=== PATIENT | female | born 1985 | race Caucasian/White ===

== ENCOUNTER 2017-02-13 02:28 | Inpatient (IN) | payer OTHER ==
[2017-02-13] MEDS ORDERED: Nalbuphine 20 mg/ml Inj (1 ml) IVP PRN (02:59)
[2017-02-13] MEDS: Lactated Ringer's 1,000 ML IV SCH ×2 (04:00→05:21)
[2017-02-13 04:05] LABS: BASO % 0.3 % (0.0-2.0); EOS # 0.1 K/uL (0.0-0.7); LYMPH # 1.8 K/uL (1.0-4.3); LYMPH % 15.4 % (20.0-40.0); MEAN CELL VOLUME 85.6 fl (81.0-99.0); MEAN CORPUSCULAR HEMOGLOBIN 28.6 pg (27.0-31.0); MEAN CORPUSCULAR HGB CONC 33.4 g/dL (33.0-37.0); MEAN PLATELET VOLUME 9.2 fl (7.2-11.7); MONO # 1.1 K/uL (0.0-0.8); MONO % 8.8 % (0.0-10.0); NEUT # 8.9 K/uL (1.8-7.0); NEUT % 74.5 % (50.0-75.0); NRBC % 0.1 % (0.0-0.0); RBC 4.2 Mil/uL (3.80-5.20); RED CELL DISTRIBUTION WIDTH 14.2 % (11.5-14.5); WHITE BLOOD COUNT 11.9 K/uL (4.8-10.8)
[2017-02-13] MEDS ORDERED: Fentanyl/Bupivacaine HCl 250 ML EPI ONE (06:33)
[2017-02-13] MEDS ORDERED: Oxytocin 30 units/LR 500ML 30 U/500 ML BAG IV ONE (07:36)
[2017-02-13] MEDS ORDERED: Lactated Ringer's 1,000 ML IV SCH (07:45)
--- NOTE | 2017-02-13 07:48 | OBADHP ---
Datetime: 02/13/2017 05:38 Admit Comment, IP Provider: Patient reports leaking since 1:30, no vaginal bleeding, +FM, contractio n pain. Patient reports no antepartum issues, no medical problems, no surgeries. VE=/0, grossly ruptured [id number] mod nadiya, +accels, no decels TOCO=ctxning q 5 mins A/P 1. Patient SROM and 2cm, grossly ruptured. Admit patient to labor and delivery 2. CBC, type and scren, lactated ringers 3. Epidural for pain 4. CEFM and TOCO, re-evaluate as needed Pelvic Type - PN: Adequate Extremities - PN: Normal Abdomen - PN: Normal Back - PN: Normal Breast - PN: Normal Lungs - PN: Normal Heart - PN: Normal Thyroid - PN: Normal Neurologic - PN: Normal HEENT - PN: Normal General - PN: Normal FHR - Baseline A Provider: 150 Membranes, Provider: Ruptured Contraction Comments Provider: q 5 mins Vital Signs Provider: Reviewed; Within Normal Limits IP Chief Complaint: Uterine contractions; Suspected ruptured membranes NICHD Variability Prov Fetus A: Moderate 6-25bpm NICHD Accel Fetus A IP Provider: [id number] Dilatation, Provider: 2 Effacement, Provider: 90 Station, Provider: 0 Genitourinary Exam: Normal DTRs - PN: Normal EGA AdmitDate IP: 38.5 IP Adm Impression: Term, intrauterine IP Admit Plan: Admit to unit
[2017-02-13] MEDS ORDERED: Lidocaine 2% Inj (20ml) ONE (09:32)
--- NOTE | 2017-02-13 10:06 | OBPN ---
Datetime: 02/13/2017 10:03 IP Progress Impression: Normal progression of labor IP Procedures: Sterile Vag Exam IP Progress Plan: Continue present management Contraction Comments Provider: q2min FHR - Baseline A Provider: 140s-150s IP Progress Note Comment: Patient fully dilated. Continue present management. Anticipate normal spon taneous vaginal delivery. Both maternal well-being and well-being reassuring at this time. Vital Signs Provider: Reviewed; Within Normal Limits NICHD Variability Prov Fetus A: Moderate 6-25bpm Dilatation, Provider: 10 Effacement, Provider: 100 Station, Provider: 1 Datetime: 02/13/2017 05:38 Membranes, Provider: Ruptured NICHD Accel Fetus A IP Provider: [id number]
[2017-02-13 12:29] VITALS: BMI 30.4
[2017-02-13 12:32] VITALS: BP 106/70; PULSE 79; RESP 17; TEMP 98.7; O2SAT 100
[2017-02-13] MEDS ORDERED: Oxycodone/Acetaminophen 5/325 mg Tab PO PRN ×2 (13:19→19:40)
[2017-02-13] MEDS ORDERED: Oxytocin 30 units/LR 500ML 30 U/500 ML BAG IV SCH (13:25)
[2017-02-13] MEDS ORDERED: Prenatal Multivit/Folic Acid/Iron Tab PO SCH ×2 (14:15→19:40)
[2017-02-14 08:22] LABS: HEMOGLOBIN 10.1 g/dL (12.0-16.0); MEAN CELL VOLUME 85.9 fl (81.0-99.0); MEAN CORPUSCULAR HEMOGLOBIN 28.8 pg (27.0-31.0); MEAN CORPUSCULAR HGB CONC 33.6 g/dL (33.0-37.0); RBC 3.5 Mil/uL (3.80-5.20); RED CELL DISTRIBUTION WIDTH 14.7 % (11.5-14.5); WHITE BLOOD COUNT 15.5 K/uL (4.8-10.8)
--- NOTE | 2017-02-14 08:58 | OBDS ---
DELIVERY PERSONNEL Delivery Doctor: Tom Mayers MD Payer Specialist: Miriam Astudillo RN Anesthesiologist: Cassius Heredia MD General Intern: Thompson HEREDIA MD MATERNAL INFORMATION Delivery Anesthesia: Local; Epidural Medications in Delivery: pitocin Estimated Blood Loss (ml): 400 Placenta Cultured: No Maternal Complications: None Provider Comments: Normal spontaneous vaginal delivery. Patient delivered viable female with Apgars of 9 and 9 at one and 5 minutes respectively. I nfant delivered via JANAY position. Placenta delivered spontaneously. Lacerations repaired, as above. U terus firm and appropriately hemostatic following delivery. Patient tolerated delivery and repair wel l. No complications. Estimated blood loss 300 mL LABOR SUMMARY EDC: 02/22/2017 00:00 No. Babies in Womb: 1 Attempted: No Labor Anesthesia: Epidural LABOR INFORMATION Onset of Labor: 02/13/2017 01:30 Complete Dilatation: 02/13/2017 10:00 Cervical Ripening Agents: Cytotec @ (Annotations: 50 mcg pt tolerated PO med well ) Other Ripening Agents: cytotec x1 50 mg Oxytocin: Augmentation Group B Beta Strep: Negative MEMBRANES Membranes Rupture Method: Spontaneous Rupture of Membranes: 02/13/2017 01:30 Length of Rupture (hrs): 11.38 Amniotic Fluid Color: Clear Amniotic Fluid Amount: Moderate Amniotic Fluid Odor: Normal STAGES OF LABOR Stage 1 hrs: 8 Stage 1 min: 30 Stage 2 hrs: 2 Stage 2 min: 53 Stage 3 hrs: 0 Stage 3 min: 2 Total Time in Labor hrs: 11 Total Time in Labor min: 25 VAGINAL DELIVERY Episiotomy: None Laceration Extension: Second Degree Laceration Type: Perineal; Sulcus Laceration Repair: Yes Laceration Repair Note: Second-degree midline perineal laceration, left lateral sulcal laceration. Areas infiltrated with 1% lidocaine. Both lacerations repaired with 2. 0 Rapide suture without com plication. Patient tolerated repair well. Initial Vag Sponge Count: 35 Final Vag Sponge Count: 35 Initial Vag Sharps Count: 4 Final Vag Sharps Count: 4 Sponge Count Correct: Yes Sharps Count Correct: Yes Count Comment: all count correct BABY A INFORMATION Delivery Date/Time: 02/13/2017 12:53 Method of Delivery: Vaginal Born in Route : Yes : N/A Forceps: N/A Vacuum Extraction: N/A Shoulder Dystocia : No SHOULDER DYSTOCIA BABY A Delivery Date/Time: 02/13/2017 12:53 PRESENTATION/POSITION BABY A Presentation: Cephalic Cephalic Presentation: Vertex Vertex Position: Left Occipital Anterior Breech Presentation: N/A PLACENTA INFORMATION BABY A Placenta Delivery Time : 02/13/2017 12:55 Placenta Method of Delivery: Spontaneous Placenta Status: Delivered SCORES BABY A Heart Rate 1 min: >100 bpm Resp Effort 1 min: Good Cry Reflex Irritability 1 min: Cough or Sneeze or Pulls Away Muscle Tone 1 min: Active Motion Color 1 min: Body [place], Extremities Blue SCORE 1 MIN: 9 Heart Rate 5 min: >100 bpm Resp Effort 5 min: Good Cry Reflex Irritability 5 min: Cough or Sneeze or Pulls Away Muscle Tone 5 min: Active Motion Color 5 min: Body [place], Extremities Blue Resuscitation Effort 5 min: Tactile Stimulation SCORE 5 MIN: 9 Heart Rate 10 min: >100 bpm Resp Effort 10 min: Good Cry Reflex Irritability 10 min: Cough or Sneeze or Pulls Away Muscle Tone 10 min: Active Motion Color 10 min: Completely [place] SCORE 10 MIN: 10 INFANT INFORMATION BABY A Gestational Age at Delivery: 38.5 Gestational Status: Term Outcome : Liveborn Condition : Stable Sex: Female IDENTIFICATION/MEDS BABY A ID Band Number: [id number] ID Band Location: Right Leg; Left Leg WEIGHT/LENGTH BABY A Infant Birthweight (gms): 2790 Weight (lb): 6 Weight (oz): 2 Infant Length Inches: 19.00 Infant Length cms: 48.3 CORD INFORMATION BABY A No. Cord Vessels: 3 Nuchal Cord : N/A Infant Cord pH Baby Arterial: NO Cord pH Baby Venous: NO Cord Blood Taken: Yes Banking/Donate Info: NO Infant Suction: Mouth; Nose ASSESSMENT BABY A Complications: None Physical Findings at Delivery: Within Normal Limits Respirations: Appears Normal [place] Man/ALS Called : No Care By: miriam astudillo rn,maria elena carrillo rn , sisi acosta Transferred To: Remains with Mother
--- NOTE | 2017-02-14 10:55 | OBPPN ---
Datetime: 02/14/2017 10:53 PP Pain Prov: Within normal limits PP Nausea Prov: Denies PP Flatus Prov: Yes PP Breasts Prov: Normal PP Heart Prov: Normal PP Lungs Prov: Normal PP Abdomen/Uterus Prov: Normal PP Lochia Prov: Normal PP Vulva/Perineum Prov: Normal PP CVA Tenderness Prov: Normal PP Extremities Prov: Normal PP Comments Phys Exam Prov: Fundus under umbilicus PP Impression Prov: Normal progression PP Plan Prov: Continue present management PP Progress Note Prov: Patient denies CP, no SOB, no n/V, tolerating PO diet, ambulating/voiding wel l, mild lochia, abdominal pain tolerable with meds A/P PPD #1 1. continue current orders 2. Reg diet 3. Encourage ambulation and IP PP Procedures: None Vital Signs Provider PP: Reviewed; Within Normal Limits
--- NOTE | 2017-02-15 08:20 | OBPPN ---
Datetime: 02/15/2017 08:11 PP Pain Prov: Within normal limits PP Nausea Prov: Denies PP Flatus Prov: Yes PP Breasts Prov: Normal PP Heart Prov: Normal PP Lungs Prov: Normal PP Abdomen/Uterus Prov: Normal PP Lochia Prov: Normal PP Vulva/Perineum Prov: Normal PP CVA Tenderness Prov: Normal PP Extremities Prov: Normal PP Comments Phys Exam Prov: Fundus firm under umbilicus PP Impression Prov: Normal progression PP Plan Prov: Continue present management PP Progress Note Prov: Patient denies CP, no SOB, no N/V, tolerating Po diet, ambulating/voiding wel l, abdominal pain tolerable with meds, mild lochia A/P PPD #2 1. discharge home 2. discharge instructions reviewed IP PP Procedures: None Vital Signs Provider PP: Reviewed; Within Normal Limits
--- NOTE | 2017-02-15 08:22 | OBDCSUM ---
Datetime: 02/15/2017 08:19 Discharged to, Provider: Home Follow up at, Provider: OB Disch Instr Activity: Normal activity Disch Instr Diet: Regular Discharge Instructions, Provider: Routine instructions given Discharge Diagnosis, Provider: Term Delivered Discharge Time: 02/15/2017 08:19 Follow up in weeks, Provider: 6 wks Disch Referrals: None Contraception discussed, Prov: Yes Disch Activity Restrictions: No sexual activity; Nothing in vagina - [place], tampons, douche
== END 2017-02-15 14:00 | disposition home or self-care (01) | DRG 775 ==
LOC: H.EROB2 02:28 → H.L&D 02:52 → H.EROB 03:07 → H.EROB2 03:08 → H.OB/GYN 20:00
PROVIDERS: ADMIT Obstetrics & Gynecology; ATTEND Obstetrics & Gynecology
PROC: 10E0XZZ Delivery of Products of Conception, External Approach (ICD-10-PCS; principal; 2017-02-13)
PROC: 0KQM0ZZ Repair Perineum Muscle, Open Approach (ICD-10-PCS; 2017-02-13)
PROC: 4A1HXCZ Monitoring of Products of Conception, Cardiac Rate, External Approach (ICD-10-PCS; 2017-02-13)
DX: O70.1 Second degree perineal laceration during delivery (principal); Z37.0 Single live birth; Z3A.38 38 weeks gestation of pregnancy